=== PATIENT | male | born 1965 ===

== ENCOUNTER 2018-02-21 10:26 | Emergency (ER) | payer SELFPAY ==
[2018-02-21] MEDS ORDERED: ACETAMINOPHEN 500 MG TAB PO ONE (10:45)
--- NOTE | 2018-02-21 10:48 | ER Report ---
History and Physical Time Seen By MD: 10:40 Hx. of Stated Complaint: Patient complains of right thumb/wrist pain after falling and catching his hand in a weird position. Patient denies pain any where else from fall HPI/ROS CHIEF COMPLAINT: Right wrist pain HISTORY OF PRESENT ILLNESS: 52-year-old male who earlier the day today lost his balance fell backwards and reached back with his right hand and felt a pop in his thumb and his right distal radius patient has pain to his wrist and the base of his thumb patient denies any other shoulder wrist elbow or head or neck injuries no additional complaints noted REVIEW OF SYSTEMS: Respiratory: No cough, no dyspnea. Cardiovascular: No chest pain, no palpitations. Gastrointestinal: No vomiting, no abdominal pain. Musculoskeletal: Right distal wrist and right hand pain Remainder of the 14 system rev: Yes Allergies: Coded Allergies: prochlorperazine (Verified Adverse Reaction, Intermediate, 02/21/18) extrapyramidal Home Meds No Active Prescriptions or Reported Meds Reviewed Nurses Notes: Yes Old Medical Records Reviewed: Yes Hx Substance Use Disorder: No Hx Alcohol Use: No Constitutional Vital Sign - Last 24 Hours 02/21/18 02/21/18 10:30 11:25 Temp 97.5 Pulse 65 82 Resp 18 B/P (MAP) 193/115 166/106 (126) Pulse Ox 93 96 O2 Delivery Room Air Room Air Physical Exam General appearance: [Alert no distress.] Respiratory: Chest is non tender, lungs are clear to auscultation. Cardiac: Regular rate and rhythm [ ] Right wrist examination musculoskeletal pain with extension flexion rotation the wrist. 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 DIFFERENTIAL DIAGNOSIS: After history and physical exam differential diagnosis was considered for right wrist fracture right hand fracture Medical Decision Making ED Course/Re-evaluation ED Course Clinical course medical decision make 52-year-old male presents emergency department today with a complaint of right wrist and right thumb and hand pain and inability to function his left is a correction his right thumb examination does show some weakness of the thumb but no loss of muscle must return the thenar eminence neurovascular intact otherwise pain with palpation to the right distal radius x-rays of the wrist and hand showed no fractures dislocation subluxations still weakness of that thumb and an supination and pronation of the wrist we'll go ahead and put him in a wrist splint and have him follow-up with orthopedics for further workup and evaluation Decision to Disposition Date: February 21, 2018 Decision to Disposition Time: 11:59 Depart Departure Latest Vital Signs Vital Signs Date Time Temp Pulse Resp B/P (MAP) Pulse Ox O2 Delivery O2 Flow Rate FiO2 02/21/18 11:25 82 166/106 (126) 96 Room Air 02/21/18 10:30 97.5 18 Impression: Primary Impression: Wrist sprain Condition: Condition Unchanged Disposition: HOME OR SELF-CARE Referrals: ASH COLLINS MD 5 Days New Scripts No Active Prescriptions or Reported Meds Patient Instructions: Wrist Sprain (DC) ZACKARY FRANCISCO MD February 21, 2018 10:48
[2018-02-21 11:25] VITALS: BP 166/106
--- NOTE | 2018-02-21 11:45 | RADIOLOGY IMAGING REPORT ---
FACILITY: [facility] PATIENT NAME: Hari Enamorado : 1965 MR: [id number] V: [id number] EXAM DATE: ORDERING PHYSICIAN: ZACKARY FRANCISCO TECHNOLOGIST: Location: [facility] Patient: Hari Enamorado : 1965 Visit/Account:[id number] Date of Sevice: 02/21/2018 Exam type: WRIST RIGHT MIN 3 VIEW History: fall Comparison: Right hand performed today. Findings: There is no evidence of acute fracture dislocation involving the right wrist. No significant arthrit ic changes identified. No radiopaque foreign bodies are seen IMPRESSION: 1. No acute osteoarticular abnormality identified involving the right wrist. If symptoms persist fo llow up imaging recommended to exclude an occult fracture Report Dictated By: Nicole Hameed MD at 02/21/2018 11:38 AM Report E-Signed By: Nicole Hameed MD at 02/21/2018 11:40 AM WSN:[email or web address]
--- NOTE | 2018-02-21 11:48 | RADIOLOGY IMAGING REPORT ---
FACILITY: [facility] PATIENT NAME: Hari Enamorado : 1965 MR: [id number] V: [id number] EXAM DATE: ORDERING PHYSICIAN: ZACKARY FRANCISCO TECHNOLOGIST: Location: [facility] Patient: Hari Enamorado : 1965 Visit/Account:[id number] Date of Sevice: 02/21/2018 Exam type: HAND COMPLETE RIGHT History: fall, heard pop in right thumb and wrist Comparison: Right wrist performed today. Findings: There is no evidence of acute fracture or dislocation involving the right hand. An oblique lucency t raversing the proximal metaphysis of the right first metacarpal likely represents a vascular groove. No foreign bodies are identified. No significant arthritic changes seen IMPRESSION: 1. No acute osteoarticular abnormality the right hand is seen Report Dictated By: Nicole Hameed MD at 02/21/2018 11:40 AM Report E-Signed By: Nicole Hameed MD at 02/21/2018 11:43 AM WSN:[email or web address]
[2018-02-21] MEDS ORDERED: TRAM-420 PO (18:23)
[2018-02-21] MEDS ORDERED: HYDR-385 PO (18:23)
[2018-02-21] MEDS ORDERED: IBUP600T22 PO (18:23)
[2018-02-21] MEDS ORDERED: OXYC-373 PO (18:33)
== END 2018-02-21 12:08 | disposition home or self-care (01) ==
LOC: ER 10:30
DX: S63.501A Unspecified sprain of right wrist, initial encounter (principal); W18.30XA Fall on same level, unspecified, initial encounter
CPT/HCPCS: 99283; L3908

== ENCOUNTER 2018-02-21 18:13 | Emergency (ER) | payer SELFPAY ==
[2018-02-21] MEDS ORDERED: HYDR-385 PO (18:23)
[2018-02-21] MEDS ORDERED: TRAM-420 PO (18:23)
[2018-02-21] MEDS ORDERED: IBUP600T22 PO (18:23)
[2018-02-21] MEDS ORDERED: OXYC-373 PO (18:33)
--- NOTE | 2018-02-21 18:33 | ER Report ---
History and Physical Time Seen By MD: 18:20 Hx. of Stated Complaint: pt seen here earlier today, was seen at [facility] HPI/ROS CHIEF COMPLAINT: hand/wrist pain HISTORY OF PRESENT ILLNESS: This is a 52 year old male. He was here earlier today. Diagnosed with wrist strain with negative x-rays. FOOSH injury earlier. Given Hydrocodone for pain, but not helping unless he takes two of them. Prescribed 6 tablets. Went to [facility]. They put him in a different wrist splint and gave him Ultram. Not helping for pain either. They have him scheduled for an MRI tomorrow. They think that there is a fracture present as well, according to patient report. He follows up with them on Monday. He has been elevating, applying ice and wearing the splint. Allergies: Coded Allergies: prochlorperazine (Verified Adverse Reaction, Intermediate, 02/21/18) extrapyramidal Home Meds Active Scripts Oxycodone Hcl/Acetaminophen (OXYCODONE-ACETAMINOPHEN 5-325) 1 Each Tablet, 1 EACH PO Q4H Y for PAIN, #14 TAB 0 Refills Prov:JEY TUBBS MD 02/21/18 Reported Medications Ibuprofen (IBUPROFEN) 600 Mg Tablet, 1 TAB PO Q6H, TAB 02/21/18 Hydrocodone Bit/Acetaminophen (HYDROCODON-ACETAMINOPHEN 5-325) 1 Each Tablet, 1- 2 EACH PO Q4H, TAB 02/21/18 Tramadol Hcl (TRAMADOL HCL) 50 Mg Tablet, 50-100 MG PO Q4-6H, TAB 02/21/18 Reviewed Nurses Notes: Yes Hx Substance Use Disorder: No Hx Alcohol Use: No Constitutional Vital Sign - Last 24 Hours 02/21/18 02/21/18 18:18 18:46 Temp 97.5 Pulse 77 Resp 20 B/P (MAP) 181/104 148/95 (112) Pulse Ox 92 O2 Delivery Room Air Physical Exam General: Alert, no acute distress. Musculoskeletal: Splint in place. Swelling in the area of injury, now extending up the forearm. Sensation still intact. Medical Decision Making ED Course/Re-evaluation ED Course After discussing options, the patient and I decided to continue with current non -medication treatment and add Percocet 5/[address] the other pain medicines. Take home pack given and prescription that he can fill tomorrow. Decision to Disposition Date: February 21, 2018 Decision to Disposition Time: 18:30 Depart Departure Latest Vital Signs Vital Signs Date Time Temp Pulse Resp B/P (MAP) Pulse Ox O2 Delivery O2 Flow Rate FiO2 02/21/18 18:46 148/95 (112) 02/21/18 18:18 97.5 77 20 92 Room Air Impression: Primary Impression: Injury of wrist, right Condition: Improved Disposition: HOME OR SELF-CARE New Scripts Oxycodone Hcl/Acetaminophen (OXYCODONE-ACETAMINOPHEN 5-325) 1 Each Tablet 1 EACH PO Q4H Y for PAIN, #14 TAB 0 Refills Prov: JEY TUBBS MD 02/21/18 Additional Instructions: Follow-up with [facility] as planned. Take Percocet 5/325, one every 4 hours as needed for pain. Keep on doing what you are doing for pain: elevation, ice and splint. Problem Qualifiers Primary Impression: Injury of wrist, right Encounter type: subsequent encounter Qualified Codes: S69.91XD - Unspecified injury of right wrist, hand and finger(s), subsequent encounter JEY TUBBS MD February 21, 2018 18:33
[2018-02-21] MEDS ORDERED: oxyCODONE/ACETAMIN 5/325MG TH 2 TAB/BOTTLE PO ONE (18:35)
[2018-02-21 18:46] VITALS: BP 148/95
== END 2018-02-21 18:45 | disposition home or self-care (01) ==
LOC: ER 18:35
DX: S69.91XD Unspecified injury of right wrist, hand and finger(s), subsequent encounter (principal)
CPT/HCPCS: 99281